=== PATIENT | male | born 1945 | race Caucasian/White ===

== ENCOUNTER 2019-01-09 15:23 | Emergency (ER) | payer MEDICARE ==
[2019-01-09 16:24] LABS: APPEARANCE,URINE CLEAR; BILIRUBIN,URINE NEGATIVE (NEGATIVE); COLOR,URINE YELLOW; GLUCOSE, URINE NEGATIVE (NEGATIVE); KETONES,URINE NEGATIVE (NEGATIVE); LEUKOCYTE ESTERASE,URINE NEGATIVE (NEGATIVE); NITRITE,URINE NEGATIVE (NEGATIVE); PROTEIN,URINE NEGATIVE (NEGATIVE); URINE SPECIFIC GRAVITY 1.017; UROBILINOGEN,URINE NEGATIVE mg/dL (<2.0)
[2019-01-09 16:39] LABS: ABSOLUTE EOSINOPHILS # (AUTO) 0.3 10^3/uL (0.0-0.6); ABSOLUTE LYMPHOCYTES (AUTO) 0.7 10^3/uL (0.5-4.7); ABSOLUTE MONOCYTES (AUTO) 0.5 10^3/uL (0.1-1.4); BASOPHILS % (AUTO) 0.4 % (0-2); EOSINOPHILS % (AUTO) 5.4 % (0-6); HEMATOCRIT 33.5 % (37.9-51.0); HEMOGLOBIN 11.4 g/dL (13.5-17.0); LYMPHOCYTES % (AUTO) 13.3 % (13-45); MEAN CORPUSCULAR HEMOGLOBIN 29.6 pg (27.0-33.4); MEAN CORPUSCULAR VOLUME 87 fl (80-97); MONOCYTES % (AUTO) 9.1 % (3-13); PLATELET COUNT 205 10^3/uL (150-450); RED BLOOD COUNT 3.84 10^6/uL (4.35-5.55); RED CELL DISTRIBUTION WIDTH 13.8 % (11.5-14.0); SEGMENTED NEUTROPHILS % (AUTO) 71.8 % (42-78); TOTAL CELLS COUNTED % (AUTO) 100 %; WHITE BLOOD COUNT 5.6 10^3/uL (4.0-10.5)
--- NOTE | 2019-01-09 16:47 | ER Document Report ---
Entered by RYAN YING SCRIBE 01/09/19 0993 Acting as scribe for:GABY RODAS MD ED Dizziness/Weakness - General Chief Complaint: Syncope Stated Complaint: SYNCOPE Time Seen by Provider: 01/09/19 16:13 Mode of Arrival: Ambulatory Information source: Patient Notes: Patient is a 73 year old male with HTN and ulcerative colitis presents to the emergency department complaining of a syncopal episode. Patient states he is visiting [place] for a . He states while he was outside, for approximately 30 minutes, he began to feel lightheaded and dizzy. He states he attempted to grab onto a fence, but proceeded to fall to his knees and then onto the ground. [facility] he seemed to have seizure-like activity with some drooling when he first went to the ground. He did wake up shortly after falling to the ground. Patient denies any nausea or vomiting. Patient states "I feel like a champ" after receiving IV fluids. EMS reported the patient was hypotensive prior to IV fluids. He states that he had not been eating or drinking much fluid, partly because when he does, his ulcerative colitis problem makes him have to go use the restroom and it was not convenient given the circumstances today. - HPI Patient complains to provider of: Syncope Onset: Just prior to arrival Onset/Duration: Sudden Quality of pain: No pain Associated symptoms: Dizzy, Lightheaded - Related Data Allergies/Adverse Reactions: amoxicillin [From Augmentin] Allergy (Verified 01/09/19 15:37) clavulanic acid [From Augmentin] Allergy (Verified 01/09/19 15:37) Past Medical History - General Information source: Patient - Social History Smoking Status: Never Smoker Cigarette use (# per day): No Chew tobacco use (# tins/day): No Drug Abuse: None Family History: Reviewed & Not Pertinent Patient has suicidal ideation: No Patient has homicidal ideation: No - Past Medical History Cardiac Medical History: Reports: Hx Hypertension GI Medical History: Reports: Hx Ulcerative Colitis Past Surgical History: Reports: Hx Appendectomy, Hx Cholecystectomy, Hx Umbilical Hernia Review of Systems - Review of Systems Constitutional: No symptoms reported EENT: No symptoms reported Cardiovascular: See HPI, Syncope, Dizziness, Lightheaded Respiratory: No symptoms reported Gastrointestinal: No symptoms reported Genitourinary: No symptoms reported Male Genitourinary: No symptoms reported Musculoskeletal: No symptoms reported Skin: No symptoms reported Hematologic/Lymphatic: No symptoms reported Neurological/Psychological: No symptoms reported -: Yes All other systems reviewed and negative Physical Exam - Vital signs Vitals: Resp Pulse Ox 29 H 97 01/09/19 15:52 01/09/19 15:52 - Notes Notes: GENERAL: Alert, interacts well. No acute distress. HEAD: Normocephalic, atraumatic. EYES: Pupils equal, round, and reactive to light. Extraocular movements intact. ENT: Oral mucosa moist, tongue midline. NECK: Full range of motion. Supple. Trachea midline. LUNGS: Clear to auscultation bilaterally, no wheezes, rales, or rhonchi. No respiratory distress. HEART: Regular rate and rhythm. No murmurs, gallops, or rubs. ABDOMEN: Soft, non-tender. Non-distended. Bowel sounds present in all 4 quadrants. No guarding, rigidity, or rebound. EXTREMITIES: Moves all 4 extremities spontaneously. No edema, radial and dorsalis pedis pulses 2/4 bilaterally. No cyanosis. NEUROLOGICAL: Alert and oriented x3. Normal speech. PSYCH: Normal affect, normal mood. SKIN: Warm, dry, normal turgor. No rashes or lesions noted. Course - Re-evaluation Re-evalutation: 01/09/19 17:50 The patient had been in this area for several days for a . He was outside in the warm weather for at least 30 minutes today. He had not been eating or drinking much fluid because it was inconvenient to find a restroom. He did have a syncopal episode that looked like he probably had an anoxic seizure when he first went to the ground. He did recover quickly. He was hypotensive at that time. His blood pressure did recover with IV fluids. He felt much better after receiving IV fluids from EMS. He was given an additional liter of IV fluids in the emergency room. His lab work is unremarkable other than suggesting a mild dehydration. At this time he is smiling, states he feels well, and is hungry and wants to go home and eat. - Vital Signs Vital signs: Temp Pulse Resp BP Pulse Ox 26 H 152/75 H 95 01/09/19 16:00 01/09/19 15:54 01/09/19 16:00 - Laboratory Result Diagrams: 01/09/19 16:10 01/09/19 16:10 Laboratory results interpreted by me: 01/09/19 01/09/19 16:10 16:10 RBC 3.84 L Hgb 11.4 L Hct 33.5 L BUN 26 H Alkaline Phosphatase 182 H Creatine Kinase 32 L - EKG Interpretation by Me EKG shows normal: Sinus rhythm, [place], Intervals, QRS Complexes, ST-T Waves Rate: Normal - 76 Rhythm: NSR [place]/QRS: Left axis deviation When compared to previous EKG there are: Previous EKG unavailable Discharge - Discharge Clinical Impression: Syncope and collapse, Dehydration Hypotension Qualifiers: Hypotension type: unspecified hypotension type Qualified Code(s): I95.9 - H ypotension, unspecified Condition: Stable Disposition: HOME, SELF-CARE Additional Instructions: Syncopal Episode Syncope (fainting or near-fainting) can occur from many different health problems. Or it can be a simple fainting spell requiring no treatment. It is safe for you to go home, but further evaluation will likely be necessary. Your work-up may include tests for internal bleeding, heart disease, medi cation problems, or near-strokes. Tests are not always required, however, depending on the nature of your problem. The warning signs of an impending faint include: dizziness, lightheadedness, nausea, hot flashes, tingling, and weakness. If this happens, lay down and put your feet up, then wait until all of these symptoms have passed before standing up again. If these episodes become recurrent, or if you develop chest pain, heart palpitations, mental confusion, blurred vision, or headache, then you should call the physician, or go to the emergency room. Dehydration Dehydration can result from vomiting or diarrhea, fever, or decreased intake of fluids. If severe, hospitalization and intravenous fluids may be required. Most cases are treated at home with fluids by mouth. For the next 24 hours, drink lots of clear fluids. In mild cases, this can be soda pop or sports drinks. For more severe dehydration, the doctor may recommend special fluids such as Pedialyte or Lytren. Try to get three liters (3 quarts) of fluid per day. If vomiting occurs, continue to drink the fluids frequently (every 15 to 20 minutes), but in small amounts (one or two ounces). Depending on the type of dehydration, the doctor may prescribe antinausea medicine or potassium replacements. Call the doctor or return for re-examination if you become progressively weak, vomit repeatedly, or have other new symptoms. Drink cool clear liquids today. Rest. RETURN TO THE EMERGENCY ROOM IF ANY NEW OR WORSENING SYMPTOMS. Scribe Attestation: 01/09/19 17:37 I personally performed the services described in the documentation, reviewed and edited the documentation which was dictated to the scribe in my presence, and it accurately records my words and actions. I personally performed the services described in the documentation, reviewed and edited the documentation which was dictated to the scribe in my presence, and it accurately records my words and actions.
[2019-01-09 17:06] LABS: ALANINE AMINOTRANSFERASE 36 U/L (21-72); ALBUMIN 3.7 g/dL (3.5-5.0); ALKALINE PHOSPHATASE 182 U/L (38-126); ANION GAP 13 (5-19); ASPARTATE AMINO TRANSFERASE 31 U/L (17-59); BILIRUBIN,DIRECT 0.3 mg/dL (0.0-0.4); BILIRUBIN,TOTAL 0.5 mg/dL (0.2-1.3); BLOOD UREA NITROGEN 26 mg/dL (7-20); CALCIUM 9.5 mg/dL (8.4-10.2); CARBON DIOXIDE 26 mmol/L (22-30); CHLORIDE 103 mmol/L (98-107); CREATINE KINASE 32 U/L (55-170); GLUCOSE 94 mg/dL (75-110); POTASSIUM 4.2 mmol/L (3.6-5.0); TOTAL PROTEIN 6.9 g/dL (6.3-8.2)
[2019-01-09 17:14] LABS: CREATINE KINASE MB 0.51 ng/mL (<4.55)
[2019-01-09 17:15] LABS: TROPONIN I < 0.012 ng/mL
[2019-01-09] MEDS ORDERED: DEXTROSE 5%-LACTATED RINGERS 1,000 ML IV ONE (17:18)
--- NOTE | 2019-01-09 17:45 | EKG REPORT ---
SEVERITY:- OTHERWISE NORMAL ECG - SINUS RHYTHM BORDERLINE LEFT AXIS DEVIATION : Confirmed by: aRshida Llanos MD 09-Jan-2019 17:44:48
[2019-01-09 18:16] VITALS: BP 153/69
== END 2019-01-09 18:15 | disposition home or self-care (01) ==
LOC: ER 15:23
DX: R55 Syncope and collapse (principal); E86.0 Dehydration; I95.9 Hypotension, unspecified; I10 Essential (primary) hypertension; Z88.0 Allergy status to penicillin; Z90.49 Acquired absence of other specified parts of digestive tract
CPT/HCPCS: 93005; 99284; 96360; 36415; 82553; 82550; 85025; 80053; 81001; 84484; 93010; J7121